=== PATIENT | female | born 1995 | race Caucasian/White ===

== ENCOUNTER 2016-08-01 09:06 | Emergency (ER) | payer OTHER ==
[2016-08-01 09:35] LABS: BILIRUBIN,URINE NEGATIVE (NEGATIVE)
[2016-08-01 09:46] LABS: HCG UR QUAL NEGATIVE; UA w/ MICROSCOPIC CHARGE YES
[2016-08-01] MEDS ORDERED: IBUPROFEN 400 MG TABLET PO STA (09:50)
[2016-08-01] MEDS ORDERED: ACETAMINOPHEN 325 MG TABLET PO STA (09:50)
--- NOTE | 2016-08-01 09:50 | ED Physician Documentation ---
History of Present Illness - Stated complaint Stated Complaint: LT SIDE OVARY PX - Chief complaint Chief Complaint: Abd Pain - Additonal information Additional information: hx from pt 21 f on impanted control no menses for a year hx ovarian cysts to ER with LLQ pain for 3 days, sharp had some vag spotting and white dc no fever no urinary sx Review of Systems Constitutional: denies: Fever GI: reports: Abdominal Pain : reports: Discharge, Vaginal bleeding. denies: Now EGA Immunocompromised: denies: Immunocompromised PD PAST MEDICAL HISTORY - Past Medical History Past Medical History: Yes INFORMATION ASSURANCE ANALYST: Ovarian cysts - Past Surgical History Past Surgical History: No /INFORMATION ASSURANCE ANALYST: Other - Present Medications Home Medications: Ambulatory Orders Medication Instructions Recorded Confirmed Metronidazole [Flagyl] 500 mg PO BID #13 tablet 08/01/16 - Allergies Allergies/Adverse Reactions: Allergies Allergy/AdvReac Type Severity Reaction Status Date / Time No Known Drug Allergies Allergy Verified 12/02/14 06:54 - Social History Does the pt smoke?: Yes Smoking Status: Current every day smoker Does the pt drink ETOH?: No Does the pt have substance abuse?: Yes - Immunizations Immunizations are current?: Yes PD ED PE NORMAL - Cardiac Cardiac: RRR - Respiratory Respiratory: No respiratory distress, Clear bilaterally - Abdomen Abdomen: Soft, Other (TTP LLQ s rebound or guarding) - Female Female : Financial Reporting Advisor present (Sakshi), Other (no CMT, fark blood, no dc) - Derm Derm: Normal color - Neuro Neuro: Alert and oriented X 3 Results - Vitals Vitals: Vital Signs - 24 hr 08/01/16 08/01/16 09:12 10:48 Temperature 36.7 C Heart Rate 54 L 64 Respiratory 17 17 Rate Blood Pressure 110/80 109/54 L O2 Saturation 97 100 Oxygen O2 Source Room air - Labs Labs: Laboratory Tests 08/01/16 09:21 Urine Color YELLOW Urine Clarity CLEAR Urine pH 7.0 Ur Specific Orient <=1.005 Urine Protein NEGATIVE Urine Glucose (UA) NEGATIVE Urine Ketones NEGATIVE Urine Occult Blood MODERATE H Urine Nitrite NEGATIVE Urine Bilirubin NEGATIVE Urine Urobilinogen 0.2 (NORMAL) Ur Leukocyte Esterase TRACE H Urine RBC 6-10 H Urine WBC 4-5 Ur Squamous Epith Cells FEW Squamous Amorphous Sediment Rare Urine Bacteria None Seen Ur Microscopic Review INDICATED Urine Culture Comments INDICATED Urine HCG, Qual NEGATIVE - Rads (name of study) pelvic sono Radiology: See rad report (R ovarian follicle, no FF, no torsion) PD MEDICAL DECISION MAKING - ED course ED course: pt thinks she has BV 2/2 odor so will tx for same pending cx Departure - Departure Disposition: 01 Home, Self Care Clinical Impression: Pelvic pain, Bacterial vaginosis Condition: Good Instructions: ED Vaginosis Bacterial Follow-Up: RODRIGO KELLY [Primary Care Provider] - Prescriptions: Metronidazole [Flagyl] 500 mg PO BID #13 tablet
[2016-08-01 09:52] LABS: UR CULTURE IF IND INDICATED
[2016-08-01] MEDS ORDERED: IBUPROFEN 400 MG TABLET PO ONE (09:52)
[2016-08-01] MEDS ORDERED: ACETAMINOPHEN 325 MG TABLET PO ONE (09:52)
[2016-08-01 10:48] VITALS: BP 109/54
[2016-08-01] MEDS ORDERED: metroNIDAZOLE 250 MG TABLET PO STA (12:13)
[2016-08-01] MEDS ORDERED: metroNIDAZOLE 250 MG TABLET PO ONE (12:20)
--- NOTE | 2016-08-01 12:58 | Ultrasound Report ---
PELVIC ULTRASOUND: 08/01/2016 CLINICAL INDICATION: Left lower quadrant pain, history of cysts. TECHNIQUE: Transabdominal pelvic ultrasound performed for global evaluation. Transvaginal pelvic ultr asound performed for detailed evaluation. Real-time scanning performed and static images obtained wit h Doppler. FINDINGS: The uterus is anteverted, measuring 6.6 x 3.8 x 3.3 cm. The endometrial echo complex measu res 2 mm. A small amount of fluid is seen in the endocervical canal. No focal myometrial lesion is pr esent. The right ovary measures 4.4 x 3.4 x 3.1 cm, and contains a 3.3 cm follicle. Normal ovarian fl ow is seen. The left ovary measures 2.1 x 1.9 x 1.4 cm, and is unremarkable. Normal ovarian flow is s een. No free fluid is present. IMPRESSION: A 3.3 CM RIGHT OVARIAN FOLLICLE. NORMAL FLOW TO BOTH OVARIES. NO FREE FLUID. JOB #: [id number] EXT JOB #:[id number]
== END 2016-08-01 12:30 | disposition home or self-care (01) ==
LOC: ED 09:06
DX: N76.0 Acute vaginitis (principal); B96.89 Other specified bacterial agents as the cause of diseases classified elsewhere; R10.2 Pelvic and perineal pain; F17.200 Nicotine dependence, unspecified, uncomplicated
CPT/HCPCS: 76830; 76856; 81001; 81025; 87086; 87491; 87591; 93975; 99283; A9270; 81003; 87210

== ENCOUNTER 2017-06-13 15:10 | Emergency (ER) | payer OTHER ==
[2017-06-13 15:19] VITALS: BP 117/64
--- NOTE | 2017-06-13 15:41 | ED Physician Documentation ---
PD HPI LOWER EXT INJURY - Stated complaint Stated Complaint: FOOT INJURY - Chief complaint Chief Complaint: Trauma Ext - History of Present Illness PD HPI LOW EXT INJURY LOCATION: Left, Ankle, Foot Type of injury: Blunt / blow (she was prepping a horse to ride and it stomped her foot/ankle with its front hoof.) Timing - onset: Today Timing - details: Abrupt onset, Still present Improved by: Rest Worsened by: Moving, Palpating Associated symptoms: Swelling. No: Weakness, Numbness Contributing factors: Prior ortho surgery Similar symptoms before: Has not had sx before Recently seen: Not recently seen Review of Systems Skin: denies: Abrasion (s), Laceration (s) Neurologic: denies: Focal weakness, Numbness PD PAST MEDICAL HISTORY - Past Medical History Past Medical History: Yes NURSES EDUCATOR: Ovarian cysts Psych: Depression Musculoskeletal: None - Past Surgical History Past Surgical History: No /NURSES EDUCATOR: Other - Present Medications Home Medications: Ambulatory Orders Medication Instructions Recorded Confirmed Tramadol HCl 50 mg PO Q6H PRN #20 tablet 06/13/17 buPROPion [Wellbutrin Xl] 1 tab PO DAILY 06/13/17 06/13/17 - Allergies Allergies/Adverse Reactions: Allergies Allergy/AdvReac Type Severity Reaction Status Date / Time No Known Drug Allergies Allergy Verified 06/13/17 15:19 - Social History Does the pt smoke?: No Smoking Status: Former smoker Does the pt drink ETOH?: No Does the pt have substance abuse?: Yes Substance Use and Type: Marijuana - Immunizations Immunizations are current?: Yes - POLST Patient has POLST: No PD ED PE NORMAL - Vitals Vital signs reviewed: Yes - General General: Alert and oriented X 3, No acute distress, Well developed/nourished - Derm Derm: Normal color, Warm and dry - Extremities Extremities: Other (left anterior ankle and foot with swelling and tenderness, mild bruising. No gross deformity. Some pain with inversion stress. Toes are okay. ) - Neuro Neuro: No motor deficit, No sensory deficit, Other (good pulses color and cap refill. ) Results - Vitals Vitals: Oxygen O2 Source Room air - Rads (name of study) left ankle Radiology: Prelim report reviewed (no fractures. small accessory navicular bone. ), EMP read contemporaneously (no fractures. ) Departure - Departure Disposition: 01 Home, Self Care Clinical Impression: Injury of foot Qualifiers: Encounter type: initial encounter Laterality: left Qualified Code(s): S99.922A - Unspecified injury of left foot, initial encounter Condition: Stable Record reviewed to determine appropriate education?: Yes Instructions: ED Contusion Foot Follow-Up: RODRIGO KELLY [Primary Care Provider] - Prescriptions: Tramadol HCl 50 mg PO Q6H PRN #20 tablet PRN Reason: Pain Comments: Tylenol or ibuprofen if needed for pains. Use an ankle brace or at least a wrap on it to help support the foot and ankle while its healing. Crutches initially for the pain or weightbearing and progress weight as able. There are no fractures on x-ray. This can still hurt for several days to week or more for fully healing up. Activity as you feel able based on comfort. Recheck if not fully better though in a couple of weeks. Forms: Activity restrictions Discharge Date/Time: 06/13/17 17:37
[2017-06-13] MEDS ORDERED: ACETAMINOPHEN 325 MG TABLET PO STA (16:02)
--- NOTE | 2017-06-13 17:01 | XRAY Report ---
EXAM: LEFT FOOT RADIOGRAPHY EXAM DATE: 06/13/2017 04:33 PM. CLINICAL HISTORY: Stomped by horse. Left lateral foot pain after horse stepped on foot. COMPARISON: None. TECHNIQUE: 3 views. FINDINGS: Bones: Normal. No fractures or bone lesions. Joints: Normal. No subluxations. Soft Tissues: Normal. No soft tissue swelling. Tiny accessory navicular bone. IMPRESSION: No acute findings. [facility] Referring Provider Line: [phone] SITE ID: [id number]
--- NOTE | 2017-06-13 17:01 | XRAY Preliminary Report ---
Exam: XR FOOT 3 VIEW LT IMPRESSION: No acute findings. [facility] SITE ID: [id number]
== END 2017-06-13 17:37 | disposition home or self-care (01) ==
LOC: ED 15:10
DX: S99.922A Unspecified injury of left foot, initial encounter (principal); W55.12XA Struck by horse, initial encounter; Z87.891 Personal history of nicotine dependence
CPT/HCPCS: 73630; 99283; A9270

== ENCOUNTER 2020-03-10 10:30 | Outpatient (CLI) | payer OTHER ==
--- NOTE | 2020-03-10 19:25 | XRAY Report ---
PROCEDURE: Chest 2 View X-Ray INDICATIONS: UPPER RESPIRATORY INFECTION TECHNIQUE: 2 view(s) of the chest. COMPARISON: None. FINDINGS: Surgical changes and devices: None. Lungs and pleura: No pleural effusions or pneumothorax. Mild airspace opacity at the left lower lobe . There may be trace opacity at the right lower lobe. Mediastinum: Mediastinal contours are normal. Heart size is normal. Bones and chest wall: No suspicious bony abnormalities. Soft tissues appear unremarkable. IMPRESSION: Mild airspace opacity at the left lower lobe and possibly the right lower lobe. This is suspicious fo r pneumonia or atypical infection. Reviewed by: Eugenio Barrow MD on 03/10/2020 6:24 PM [facility] Approved by: Eugenio Barrow MD on 03/10/2020 6:24 PM [facility] Station ID: [id number]
--- OUTSIDE RECORDS SUMMARY | 2020-03-14 01:50 | EXTERNAL MEDICAL SUMMARY RPT | Continuity of Care Document ---
:1995 Demographics Phone Unavailable Preferred Language Chadian Marital Status Unknown Congregational Affiliation Unknown Race Unknown Ethnic Group Unknown Author Organization [place] Address [address] [phone] Phone Care Team Providers Name Role Phone PAGerardo Unavailable Unavailable Kira Unavailable Unavailable PAIGE Unavailable Unavailable Problems date description facility [facility] Smokes tobacco daily (finding) [facility] 2020-03-05 00:00:00 [facility], unspecified [facility] 2020-03-05 00:00:00 Acute upper respiratory [facility] infections of unspecified site [facility] 2020-03-05 00:00:00 Asthma, unspecified [facility] 2020-03-05 00:00:00 [facility] 2020-03-05 00:00:00 [facility] 2020-03-05 00:00[facility]00 [facility] recurrent, unspecified [facility] 2020-03-05 00:00:00 [facility], unspecified [facility] 2020-03-05 00:00[facility] 2020-03-05 00[facility]00[facility] 2020[facility]:00:00 Tobacco use and exposure [facility] 2020-03-05 00:00:00 [facility] 2020-[facility]-05 [facility]:00:00 Details of drug misuse behavior [facility] 2020-03-05 00:00:00 Little interest or pleasure in [facility] doing things? [facility] 2020-03-05 00:00:00 [facility] 2020-03-05 00:00:00 Upper respiratory infection [facility] 2020-03-05 00:00:00 Patient Health Questionnaire 2 [facility] item (PHQ2) total score [facility] 2020-03-05 00:00:00 Recurrent major depression [facility] 2020-03-05 00:00:00 Alcohol use [facility] 2020-03-05 00:00:00 Tobacco smoking status NHIS [facility] 2020-03-05 00:00:00 Total score? [facility] 2020-03-05 00:00:00 Former smoker [facility] 2020-03-12 00:00:00 QUANTIFERON GOLD [facility] 2020-03-12 00:00:00 Swelling, mass, or lump in [facility] chest [facility] 2020-03-12 00:00:00 COMPREHENSIVE METABOLIC PANEL [facility] 2020-03-12 00:00:00 CBC W/Diff/Plt [facility] 2020-03-12 00:00:00 Other disorders of lung [facility] 2020-03-12 00:00:00 Lung mass [facility] Allergies date description facility [facility] SULFA (SULFONAMIDE ANTIBIOTICS) [facility] No Known Drug Allergies [facility] Medications date description facility 2020-02-25 00:00:00 [facility] 2020-03-05 00:00:00 null [facility] 2020-03-05 00:00:00 null [facility] 2020-03-05 00:00:00 null [facility] 2020-03-05 00:00:00 null [facility] 2020-03-05 00[facility]00:00 null [facility] 2020-03-05 00:00:00 null [facility]:00 null [facility] 2020-03-05 00:00:00 null [facility] 2020-03-05 00:00:00 DESVENLAFAXINE SUCCINATE [facility] 2020-03-05 00:00:00 ALBUTEROL SULFATE [facility] 2020-03-05 00:00:00 BUSPIRONE HCL [facility] 2020-03-05 00:00:00 BENZONATATE [facility] 2020-03-05 00:00:00 BENZONATATE [facility] 2020-03-05 00:00:00 DESVENLAFAXINE SUCCINATE [facility] 2020-03-05 00:00:00 ALBUTEROL SULFATE [facility] 2020-03-05 00:00:00 BUSPIRONE HCL [facility] Procedures date description facility 2020-02-25 00:00:00 [facility] date description facility 2020-02-25 00:00:00 [facility] Results Social History date description facility [id number] Smokes tobacco daily (finding) [facility] date description facility 2020-03-05 00:00:00 Former smoker [facility] Social History date description facility [id number] Smokes tobacco daily (finding) [facility] date description facility 2020-03-05 00:00:00 Former smoker [facility] date description facility [id number]
== END 2020-03-10 10:31 | disposition home or self-care (01) ==
LOC: DI.N 10:30
PROVIDERS: ATTEND Physician Assistant
DX: J06.9 Acute upper respiratory infection, unspecified (principal); R04.2 Hemoptysis